=== PATIENT | male | born 1995 | race African-American/Black ===

== ENCOUNTER 2017-11-11 01:35 | Emergency (ER) | payer SELFPAY ==
[2017-11-11] MEDS: IPRATRPIUM/ALBUTEROL 0.5/2.5MG 3 ML NEBU. NEB (01:45)
[2017-11-11] MEDS ORDERED: MAGNESIUM SULFATE 2GM 50 ML IV (01:45)
[2017-11-11] MEDS: IV NORMAL SALINE 1000ML BAG 1,000 ML IV (01:55)
[2017-11-11] MEDS: methylPREDNISolone SOD SUCC PF 125 MG/2 ML VIAL. IV (01:55)
[2017-11-11] MEDS: AZITHROMYCIN 250 MG TABLET. PO (03:00)
== END 2017-11-11 03:05 | disposition home or self-care (01) ==
LOC: ER 01:35
DX: J40 Bronchitis, not specified as acute or chronic (principal)
CPT/HCPCS: 71045; 94640; 96374; 99284; J2930; J7030; J7620; Q0144

== ENCOUNTER 2018-06-19 01:35 | Emergency (ER) | payer SELFPAY ==
[~2018-06-19] VITALS: Ht 180.3 cm; Wt 108.9 kg
[~2018-06-19 01:35] MED LIST: AZIT250T6 PO; GUAI-108 PO
[2018-06-19] MEDS ORDERED: ALBUTEROL SULFATE 2.5 MG/3 ML NEBU. NEB ONE (02:00)
[2018-06-19] MEDS ORDERED: ALBU2.5V8 INH (02:04)
[2018-06-19 02:35] VITALS: BP 138/76
--- NOTE | 2018-06-19 03:40 | RAD ---
Single view chest dated 06/19/2018: No comparison available. Clinical Indication: Chest pressure and fever. Findings: Single upright portable exam of the chest was performed. Heart size and mediastinal contours are within normal limits given technique. The lungs are clear without evidence of focal consolidation. Vascular interstitium is within normal limits. Impression:: Negative portable chest. Electronically signed by: Aniket Ricketts MD (06/19/2018 3:36 AM) [id number]
--- NOTE | 2018-06-19 05:06 | PHYS DOC ---
Past Medical History Past Medical History: No Pertinent History Past Surgical History: No Surgical History Alcohol Use: None Drug Use: None Adult General Chief Complaint Chief Complaint: Influenza HPI HPI Patient is a 22 year old m who p/w cc of chief complaint of shortness of breath. Apparently the patient received a diagnosis of influenza A at a local clinic prescribed Tamiflu has not started it woke up tonight felt short of breath during a coughing fit does have a previous history of asthma but it is pretty well controlled overall currently he is feeling better no chest pain. Review of Systems Review of Systems GI: : Denies dysuria or hematuria [] Musculoskeletal: Denies back pain or joint pain [] Integument: Denies rash or skin lesions [] Neurologic: Denies headache, focal weakness or sensory changes [] Endocrine: Denies polyuria or polydipsia [] All other systems were reviewed and found to be within normal limits, except as documented in this note. Current Medications Current Medications Current Medications Medications (Trade) Dose Ordered Sig/Anupama Start Time Stop Time Status Last Admin Dose Admin Albuterol Sulfate (Ventolin Neb Soln) 2.5 mg 1X ONCE 06/19/18 02:00 06/19/18 02:01 DC 06/19/18 02:15 2.5 MG Allergies Allergies Allergies Coded Allergies Type Severity Reaction Last Updated Verified No Known Drug Allergies 06/19/18 No Physical Exam Physical Exam Constitutional: Well developed, well nourished, no acute distress, non-toxic appearance. [] HENT: Normocephalic, atraumatic, bilateral external ears normal, oropharynx moist, no oral exudates, nose normal. [] Eyes: PERRLA, EOMI, conjunctiva normal, no discharge. [] Neck: Normal range of motion, no tenderness, supple, no stridor. [] Cardiovascular:Heart rate regular rhythm, no murmur [] Lungs & Thorax: Bilateral breath sounds clear to auscultation [] Abdomen: Bowel sounds normal, soft, no tenderness, no masses, no pulsatile masses. [] Skin: Warm, dry, no erythema, no rash. [] Back: No tenderness, no CVA tenderness. [] Extremities: No tenderness, no cyanosis, no clubbing, ROM intact, no edema. [] Neurologic: Alert and oriented X 3, normal motor function, normal sensory function, no focal deficits noted. [] Psychologic: Affect normal, judgement normal, mood normal. [] Current Patient Data Vital Signs Vital Signs Date Time Temp Pulse Resp B/P (MAP) Pulse Ox O2 Delivery O2 Flow Rate FiO2 06/19/18 02:35 89 18 138/76 (96) 97 Room Air 06/19/18 01:35 98.0 98.0 EKG EKG [] Radiology/Procedures Radiology/Procedures [] Impressions: Findings: Single upright portable exam of the chest was performed. Heart size and mediastinal contours are within normal limits given technique. The lungs are clear without evidence of focal consolidation. Vascular interstitium is within normal limits. Impression:: Negative portable chest. Electronically signed by: Aniket Ricketts MD (06/19/2018 3:36 AM) [id number] Course & Med Decision Making Course & Med Decision Making Pertinent Labs and Imaging studies reviewed. (See chart for details) []Just extremity interpretation negative acute patient received albuterol and felt better perhaps he had some mild bronchospasm but his sat is good his vitals are good he looks good overall he will be discharged with an albuterol inhaler. Apparently he has a prescription for Tamiflu at home. Dragon Disclaimer Dragon Disclaimer This electronic medical record was generated, in whole or in part, using a voice recognition dictation system. Departure Departure Impression: Primary Impression: Influenza Disposition: 01 HOME, SELF-CARE Condition: STABLE Patient Instructions: Influenza, Adult Scripts Albuterol Sulfate (PROAIR HFA INHALER) 8.5 Gm Hfa.aer.ad 1 PUFF INH PRN Q6HRS PRN for SHORTNESS OF BREATH, #1 INHALER 0 Refills Prov: MELANIE KHAN MD 06/19/18 MELANIE KHAN MD Jun 19, 2018 05:06
== END 2018-06-19 02:38 | disposition home or self-care (01) ==
LOC: ER 01:35
DX: J11.1 Influenza due to unidentified influenza virus with other respiratory manifestations (principal)
CPT/HCPCS: 71045; 94640; 99283; J7613